=== PATIENT | female | born 1965 | race Hispanic/Latino ===

== ENCOUNTER 2017-10-26 08:12 | Inpatient (IN) | payer OTHER ==
[2017-10-26 08:45] LABS: Basophils % (Auto) 0.9 % (0.0-1.8); Hematocrit 41.1 % (30.3-42.9); Hemoglobin 14.1 gm/dl (10.1-14.3); Mean Corpuscular HGB Conc 34 % (30-34); Mean Corpuscular Hemoglobin 33 pg (28-32); Mean Corpuscular Volume 95 fl (79-97); Platelet Count 375 K/mm3 (140-440); Red Blood Count 4.33 M/mm3 (3.65-5.03); Red Cell Distribution Width 15.2 % (13.2-15.2); White Blood Count 8.3 K/mm3 (4.5-11.0)
--- NOTE | 2017-10-26 08:49 | XRay Report ---
ROUTINE CHEST, TWO VIEWS: HISTORY: Short of breath. The trachea, heart, mediastinal contour, lung weber and bony thorax are unremarkable. IMPRESSION: Unremarkable chest x-ray.
[2017-10-26 09:01] LABS: Anion Gap 19 mmol/L; BUN/Creatinine Ratio 20; Blood Urea Nitrogen 14 mg/dL (7-17); Calcium 9.1 mg/dL (8.4-10.2); Carbon Dioxide 27 mmol/L (22-30); Glucose 84 mg/dL (65-100); Potassium 4.8 mmol/L (3.6-5.0); Sodium 141 mmol/L (137-145)
[2017-10-26] MEDS ORDERED: ULTRAM PO ONE (13:53)
[2017-10-26] MEDS ORDERED: ASPIRIN PO ONE (13:53)
--- NOTE | 2017-10-26 13:56 | Emergency Department Report ---
ED Chest Pain HPI - General Chief Complaint: Chest Pain Stated Complaint: CP/SOB Time Seen by Provider: 10/26/17 12:51 Source: patient Mode of arrival: Ambulatory Limitations: No Limitations - History of Present Illness Initial Comments: Patient states that she has been having anterior chest pressure since last night. She states she has been sweating short of breath sometimes nauseated. Sometimes the pain is more burning and in the epigastric area. She does have a history of GERD. She states she's had some nonproductive cough. However the chest pain is not pleuritic. She denies any leg pain or swelling. MD Complaint: chest pain -: Gradual, hour(s) Onset: during rest Pain Location: substernal Pain Radiation: none Severity: moderate Quality: pressure Consistency: constant (still mildly present) Improves With: nothing Worsens With: nothing re: nausea (not currently), dyspnea. denies: diaphoresis (admit sweating this morning) Other Symptoms: cough Treatments Prior to Arrival: none Aspirin use within the Past 7 Days: (0) No - Related Data Allergies Allergy/AdvReac Type Severity Reaction Status Date / Time acetaminophen [From Percocet] Allergy Unknown Verified 10/26/17 08:18 oxycodone [From Percocet] Allergy Unknown Verified 10/26/17 08:18 Heart Score - HEART Score History: Moderately suspicious EKG: Non-specific Age: 45-65 Risk factors: > 3 risk factors or hx of atherosclerotic disease Troponin: < normal limit HEART Score: 5 ED Review of Systems ROS: Stated complaint: CP/SOB Other details as noted in HPI Constitutional: denies: chills, fever Eyes: denies: eye pain, eye discharge, vision change ENT: denies: ear pain, throat pain Respiratory: shortness of breath (not currently). denies: cough, wheezing Cardiovascular: chest pain. denies: palpitations Endocrine: no symptoms reported Gastrointestinal: nausea. denies: diarrhea Genitourinary: denies: urgency, dysuria, discharge Musculoskeletal: denies: back pain, joint swelling, arthralgia Skin: denies: rash, lesions Neurological: denies: headache, weakness, paresthesias Psychiatric: denies: anxiety, depression Hematological/Lymphatic: denies: easy bleeding, easy bruising ED Past Medical Hx - Past Medical History Previous Medical History?: Yes Hx GERD: Yes Hx of Cancer: Yes (vulvar) Hx COPD: Yes Additional medical history: IBS - Surgical History Past Surgical History?: Yes Hx Cholecystectomy: Yes Additional Surgical History: bilateral ankle surgery. sinus surgery. vulvar cancer removal. hysterectomy - Family History Family history: CAD/[place] (father of a heart attack also had cancer) - Social History Smoking Status: Current Every Day Smoker Substance Use Type: None ED Physical Exam - General Limitations: No Limitations General appearance: alert, in no apparent distress - Head Head exam: Present: atraumatic, normocephalic - Eye Eye exam: Present: normal appearance. Absent: scleral icterus - ENT ENT exam: Present: mucous membranes moist - Neck Neck exam: Present: normal inspection. Absent: tenderness, meningismus - Respiratory Respiratory exam: Present: normal lung sounds bilaterally. Absent: respiratory distress - Cardiovascular Cardiovascular Exam: Present: regular rate, normal rhythm. Absent: systolic murmur, diastolic murmur, rubs, gallop - GI/Abdominal GI/Abdominal exam: Present: soft, normal bowel sounds. Absent: distended, tenderness, guarding, rebound, rigid - Extremities Exam Extremities exam: Present: normal inspection, full ROM, normal capillary refill. Absent: tenderness, pedal edema, joint swelling, calf tenderness - Back Exam Back exam: Present: normal inspection, full ROM. Absent: CVA tenderness (R), CVA tenderness (L) - Neurological Exam Neurological exam: Present: alert, oriented X3, CN II-XII intact. Absent: motor sensory deficit - Psychiatric Psychiatric exam: Present: normal affect, normal mood - Skin Skin exam: Present: warm, dry, intact, normal color. Absent: rash ED Course Vital Signs 10/26/17 08:18 Temperature 97.6 F Pulse Rate 89 Respiratory 20 Rate Blood Pressure 128/70 O2 Sat by Pulse 96 Oximetry - Reevaluation(s) Reevaluation #1: Patient was reticent to be admitted but finally acquiesced. I did explain to her that she had substantial risk factors as well as a history consistent with acute coronary syndrome. Finally she was admitted to the hospital service for further evaluation in stable condition. 10/26/17 13:58 ORIANA score - Oriana Score Age > 65: (0) No Aspirin use within the Past 7 Days: (0) No 3 or more CAD Risk Factors: (1) Yes 2 or more Angina events in past 24 hrs: (0) No Known CAD with more than 50% Stenosis: (0) No Elevated Cardiac Markers: (0) No ST Deviation Greater than 0.5mm: (0) No ORIANA Score: 1 ED Medical Decision Making - Lab Data Result diagrams: 10/26/17 08:27 10/26/17 08:27 Laboratory Results - last 24 hr 10/26/17 10/26/17 10/26/17 08:27 08:27 11:31 WBC 8.3 RBC 4.33 Hgb 14.1 Hct 41.1 MCV 95 MCH 33 H MCHC 34 RDW 15.2 Plt Count 375 Lymph % (Auto) 29.6 [place] % (Auto) 7.0 Eos % (Auto) 1.0 Baso % (Auto) 0.9 Lymph # 2.5 [place] # 0.6 Eos # 0.1 Baso # 0.1 Seg Neutrophils % 61.5 Seg Neutrophils # 5.1 Sodium 141 Potassium 4.8 Chloride 100.0 Carbon Dioxide 27 Anion Gap 19 BUN 14 Creatinine 0.7 Estimated GFR > 60 BUN/Creatinine Ratio 20 Glucose 84 Calcium 9.1 Troponin T < 0.010 < 0.010 - EKG Data EKG shows normal: sinus rhythm, axis, intervals, QRS complexes Rate: normal - EKG Data Interpretation: nonspecific ST-T wave asha (somewhat diffuse) - Radiology Data interpreted by me: Chest x-ray no acute process Critical care attestation.: If time is entered above; I have spent that time in minutes in the direct care of this critically ill patient, excluding procedure time. ED Disposition Clinical Impression: Chest pain Qualifiers: Chest pain type: unspecified Qualified Code(s): R07.9 - Chest pain, unspecified Disposition: 09 OP ADMIT IP TO THIS HOSP Is pt being admited?: Yes Does the pt Need Aspirin: Yes Condition: Stable Instructions: Chest Pain (ED) Referrals: MICHAEL OLIVIER MD [Primary Care Provider] - 3-5 Days Time of Disposition: 14:01
[2017-10-26] MEDS ORDERED: MOTRIN PO PRN (14:11)
[2017-10-26] MEDS ORDERED: ZOFRAN IV PRN (14:11)
[2017-10-26] MEDS ORDERED: DULCOLAX PR PRN (14:11)
[2017-10-26] MEDS ORDERED: NARCAN 0.4 MG/1 ML IV PRN (14:11)
[2017-10-26] MEDS ORDERED: AMBIEN PO PRN (14:11)
[2017-10-26] MEDS ORDERED: PROVENTIL IH PRN (14:11)
[2017-10-26] MEDS ORDERED: NITROSTAT SL PRN (14:28)
[2017-10-26] MEDS ORDERED: VANCOMYCIN 2,000 MG in NACL 0.9% 500 ML 500 ML IV ONE (14:30)
[2017-10-26] MEDS ORDERED: LOVENOX SUB-Q SCH (15:00)
[2017-10-26] MEDS ORDERED: VANCOMYCIN PHARMACY TO DOSE IV SCH (15:00)
[2017-10-26] MEDS ORDERED: NACL 0.9% 1000 ML 1,000 ML IV SCH (15:00)
[2017-10-26] MEDS ORDERED: PROAIR IH PRN (15:28)
[2017-10-26] MEDS ORDERED: GUAIFENESIN 1200 MG PO SCH (15:30)
--- NOTE | 2017-10-26 16:29 | History and Physical Report ---
History of Present Illness Date of examination: 10/26/17 Date of admission: 10/26/17 14:01 Chief complaint: Chest Pain History of present illness: Patient states that she has been having anterior chest pressure since last night. She states she has been sweating short of breath sometimes nauseated. Sometimes the pain is more burning and in the epigastric area. She does have a history of GERD. She states she's had some nonproductive cough. However the chest pain is not pleuritic. She denies any leg pain or swelling. Past History Past Medical History: COPD, GERD, hypothyroidism (vulvar cancer removed), other (vulvar cancer) Past Surgical History: hysterectomy, Other (bilateral ankle repair, cyst removed from R arm) Social history: , smoking Medications and Allergies Allergies Allergy/AdvReac Type Severity Reaction Status Date / Time acetaminophen [From Percocet] Allergy Unknown Verified 10/26/17 08:18 oxycodone [From Percocet] Allergy Unknown Verified 10/26/17 08:18 Home Medications Medication Instructions Recorded Confirmed Last Taken Type ALBUTEROL Inhaler [Proair] 2 puff IH Q4-6H PRN 10/26/17 10/26/17 Unknown History Cholecalciferol (Vitamin D3) 2,000 unit PO QDAY 10/26/17 10/26/17 Unknown History [Vitamin D3 2,000 unit] Citalopram Hydrobromide [Celexa] 40 mg PO QDAY 10/26/17 10/26/17 Unknown History Fluticasone/Salmeterol [Advair 1 each IH BID 10/26/17 10/26/17 Unknown History 250-50 Diskus] Lactase [Lactaid] 9,000 unit PO QDAY 10/26/17 10/26/17 10/26/17 History Modafinil [Provigil] 200 mg PO QAM 10/26/17 10/26/17 Unknown History Montelukast [Singulair] 10 mg PO QPM 10/26/17 10/26/17 10/25/17 History Multivit/Folic Acid/Herbal 223 400 mcg PO QDAY 10/26/17 10/26/17 10/26/17 History [Estroven Mood & Memory Caplet] Naproxen Sodium [Aleve TAB] 220 mg PO Q8H PRN 10/26/17 10/26/1710/26/17 History Pantoprazole [Protonix] 40 mg PO QDAY 10/26/17 10/26/17 Unknown History Thyroid,Pork [[place] Thyroid] 30 mg PO QDAY 10/26/17 10/26/17 10/25/17 History guaiFENesin [Guaifenesin] 1,200 mg PO Q12H 10/26/17 10/26/17 10/26/17 History Active Meds: Active Medications Albuterol (Proventil) 2.5 mg IH Q3HRT PRN PRN Reason: Shortness Of Breath Albuterol/Ipratropium (Duoneb *Not For Prn Use*) 1 ampul IH Q6HRT [facility] Aspirin (Aspirin) 325 mg PO QDAY [facility] Bisacodyl (Dulcolax) 10 mg IN QDAY PRN PRN Reason: Constipation unrelieved by [facility] Cholecalciferol (Vitamin D3) 2,000 unit PO DAILY [facility] Citalopram Hydrobromide (Celexa) 40 mg PO DAILY [facility] Enoxaparin Sodium (Lovenox) 40 mg SUB-Q QDAY@1000 [facility] Guaifenesin (Mucinex Er) 1,200 mg PO BID [facility] Sodium Chloride (Nacl 0.9% 1000 Ml) 1,000 mls @ 100 mls/hr IV DIRECT [facility] Ibuprofen (Motrin) 600 mg PO Q6H PRN PRN Reason: Pain, Mild (1-3) Modafinil (Provigil) 200 mg PO QAM [facility] Montelukast Sodium (Singulair) 10 mg PO QPM [facility] Naloxone HCl (Narcan 0.4 Mg/1 Ml) 0.1 mg IV Q2MIN PRN PRN Reason: Res Rate </= 8 or 02 SAT < 92% Nitroglycerin (Nitrostat) 0.4 mg SL .Q5MIN PRN PRN Reason: Chest Pain Ondansetron HCl (Zofran) 4 mg IV Q8H PRN PRN Reason: N/V unrelieved by Reglan Pantoprazole Sodium (Protonix) 40 mg PO QDAY [facility] Thyroid (Thyroid) 30 mg PO QDAY@0600 [facility] Zolpidem Tartrate (Ambien) 5 mg PO QHS PRN PRN Reason: Insomnia Review of Systems Constitutional: no weight loss, no fever, no chills, no sweats Ears, nose, mouth and throat: no ear pain, no ear discharge, no tinnitis Breasts: normal Cardiovascular: chest pain, shortness of breath, no palpitations, no edema, no syncope Respiratory: cough, shortness of breath, dyspnea on exertion Gastrointestinal: nausea, no abdominal pain, no vomiting, no diarrhea, no constipation Genitourinary Female: no dyspareunia, no dysmenorrhea, no pelvic pain, no flank pain Menstruation: post hysterectomy Rectal: no pain, no incontinence, no bleeding Musculoskeletal: arm numbness/tingling, other (chronic back pain), no shooting arm pain, no shooting leg pain, no redness of joints Integumentary: no rash, no pruritis, no redness Neurological: no head injury, no paralysis, no syncope Psychiatric: no memory loss, no sleep disturbances, no change in appetite Endocrine: no cold intolerance, no heat intolerance, no polyphagia, no excessive thirst Hematologic/Lymphatic: no easy bruising, no easy bleeding Allergic/Immunologic: no urticaria, no wheezing Exam - Constitutional Vitals: Temp Pulse Resp BP Pulse Ox 97.6 F 89 20 128/70 97 10/26/17 08:18 10/26/17 08:18 10/26/17 15:55 10/26/17 08:18 10/26/17 15:55 General appearance: Present: no acute distress - EENT Eyes: Present: PERRL, EOM intact ENT: hearing intact, clear oral mucosa - Neck Neck: Present: supple, normal ROM - Respiratory Respiratory effort: normal Respiratory: bilateral: CTA - Cardiovascular Heart Sounds: Present: S1 & S2. Absent: rub, click - Extremities Extremities: pulses symmetrical, No edema - Abdominal General gastrointestinal: Present: soft, non-tender, non-distended Female genitourinary: Present: deferred - Rectal Rectal Exam: deferred - Integumentary Integumentary: Present: clear, warm, dry - Musculoskeletal Musculoskeletal: gait normal, strength equal bilaterally - Psychiatric Psychiatric: appropriate mood/affect, intact judgment & insight - Neurologic Neurologic: CNII-XII intact, moves all extremities - Allied Health Allied health notes reviewed: nursing Results - Labs CBC & Chem 7: 10/26/17 08:27 10/26/17 08:27 Labs: Laboratory Last Values WBC 8.3 K/mm3 (4.5-11.0) 10/26/17 08:27 RBC 4.33 M/mm3 (3.65-5.03) 10/26/17 08:27 Hgb 14.1 gm/dl (10.1-14.3) 10/26/17 08:27 Hct 41.1 % (30.3-42.9) 10/26/17 08:27 MCV 95 fl (79-97) 10/26/17 08:27 MCH 33 pg (28-32) H 10/26/17 08:27 MCHC 34 % (30-34) 10/26/17 08:27 RDW 15.2 % (13.2-15.2) 10/26/17 08:27 Plt Count 375 K/mm3 (140-440) 10/26/17 08:27 Lymph % (Auto) 29.6 % (13.4-35.0) 10/26/17 08:27 [place] % (Auto) 7.0 % (0.0-7.3) 10/26/17 08:27 Eos % (Auto) 1.0 % (0.0-4.3) 10/26/17 08:27 Baso % (Auto) 0.9 % (0.0-1.8) 10/26/17 08:27 Lymph # 2.5 K/mm3 (1.2-5.4) 10/26/17 08:27 [place] # 0.6 K/mm3 (0.0-0.8) 10/26/17 08:27 Eos # 0.1 K/mm3 (0.0-0.4) 10/26/17 08:27 Baso # 0.1 K/mm3 (0.0-0.1) 10/26/17 08:27 Seg Neutrophils % 61.5 % (40.0-70.0) 10/26/17 08:27 Seg Neutrophils # 5.1 K/mm3 (1.8-7.7) 10/26/17 08:27 Sodium 141 mmol/L (137-145) 10/26/17 08:27 Potassium 4.8 mmol/L (3.6-5.0) 10/26/17 08:27 Chloride 100.0 mmol/L (98-107) 10/26/17 08:27 Carbon Dioxide 27 mmol/L (22-30) 10/26/17 08:27 Anion Gap 19 mmol/L 10/26/17 08:27 BUN 14 mg/dL (7-17) 10/26/17 08:27 Creatinine 0.7 mg/dL (0.7-1.2) 10/26/17 08:27 Estimated GFR > 60 ml/min 10/26/17 08:27 BUN/Creatinine Ratio 20 % 10/26/17 08:27 Glucose 84 mg/dL (65-100) 10/26/17 08:27 Calcium 9.1 mg/dL (8.4-10.2) 10/26/17 08:27 Troponin T < 0.010 ng/mL (0.00-0.029) 10/26/17 15:30 - Imaging and Cardiology Chest x-ray: report reviewed (Unremarkable) Assessment and Plan Advance Directives: Yes VTE prophylaxis?: Chemical Plan of care discussed with patient/family: Yes - Patient Problems (1) COPD (chronic obstructive pulmonary disease) Current Visit: Yes Status: Chronic Plan to address problem: Duoneb, Albuterol PRN (2) Hypothyroidism Current Visit: Yes Status: Chronic Plan to address problem: Continue Home Meds (3) GERD (gastroesophageal reflux disease) Current Visit: Yes Status: Chronic Plan to address problem: Continue Home meds (4) Chest pain Current Visit: Yes Status: Acute Qualifiers: Chest pain type: unspecified Qualified Code(s): R07.9 - Chest pain, unspecified Plan to address problem: Stress Test, Consult Cardiology, Nitro PRN, Recheck cardiac enzymes
[2017-10-26] MEDS ORDERED: SINGULAIR PO SCH (18:00)
[2017-10-26 18:10] LABS: Creatine Kinase 53 units/L (30-135)
[2017-10-26] MEDS: LOVENOX SUB-Q SCH (18:17)
[2017-10-26] MEDS ORDERED: DUONEB *Not for PRN Use IH SCH (20:00)
[2017-10-26] MEDS: MUCINEX ER PO SCH (22:22)
[2017-10-27 01:15] LABS: Creatine Kinase 44 units/L (30-135)
[2017-10-27] MEDS ORDERED: VANCOMYCIN 1,500 MG in NACL 0.9% 500 ML 500 ML IV SCH (03:00)
[2017-10-27] MEDS ORDERED: THYROID PO SCH (06:00)
[2017-10-27] MEDS: DUONEB *Not for PRN Use IH SCH ×2 (07:51→14:23)
[2017-10-27 08:14] LABS: Creatine Kinase 44 units/L (30-135)
[2017-10-27 09:32] VITALS: BP 112/54
[2017-10-27] MEDS ORDERED: VITAMIN D3 PO SCH (10:00)
[2017-10-27] MEDS ORDERED: FOLIC ACID PO SCH (10:00)
[2017-10-27] MEDS ORDERED: HERBAL PO SCH (10:00)
[2017-10-27] MEDS ORDERED: PROTONIX PO SCH (10:00)
[2017-10-27] MEDS ORDERED: MULTIVIT PO SCH (10:00)
[2017-10-27] MEDS ORDERED: NON-FORMULARY (Citalopram Hydrobromide [Celexa] 40 MG) PO SCH (10:00)
[2017-10-27] MEDS ORDERED: celeXA PO SCH (10:00)
[2017-10-27] MEDS ORDERED: PROVIGIL PO SCH (10:00)
[2017-10-27] MEDS ORDERED: NON-FORMULARY (Cholecalciferol (Vitamin D3) [Vitamin D3 2,000 Unit] 2,000 UNIT) PO SCH (10:00)
[2017-10-27] MEDS ORDERED: THYROID PORK 30 MG PO SCH (10:00)
[2017-10-27] MEDS ORDERED: MODAFINIL 200 MG PO SCH (10:00)
[2017-10-27] MEDS ORDERED: ASPIRIN PO SCH (10:00)
--- NOTE | 2017-10-27 11:03 | Consultation ---
History of Present Illness Consult date: 10/27/17 Consult reason: chest pain History of present illness: Patient is presenting for the evaluation of chest pain, retrosternal, associated with bilateral arm tingling. ECG is showing SR, non-specific ST-T wave abnormalities. Troponin is negative. CXR is unremarkable. Patient is a current smoker and has a history of COPD. Past History Past Medical History: COPD, GERD, hypothyroidism (vulvar cancer removed), other (vulvar cancer) Past Surgical History: hysterectomy, Other (bilateral ankle repair, cyst removed from R arm) Social history: , smoking Medications and Allergies Allergies Allergy/AdvReac Type Severity Reaction Status Date / Time acetaminophen [From Percocet] Allergy Unknown Verified 10/26/17 08:18 oxycodone [From Percocet] Allergy Unknown Verified 10/26/17 08:18 Home Medications Medication Instructions Recorded Confirmed Last Taken Type ALBUTEROL Inhaler [Proair] 2 puff IH Q4-6H PRN 10/26/17 10/26/17 Unknown History Cholecalciferol (Vitamin D3) 2,000 unit PO QDAY 10/26/17 10/26/17 Unknown History [Vitamin D3 2,000 unit] Citalopram Hydrobromide [Celexa] 40 mg PO QDAY 10/26/17 10/26/17 Unknown History Fluticasone/Salmeterol [Advair 1 each IH BID 10/26/17 10/26/17 Unknown History 250-50 Diskus] Lactase [Lactaid] 9,000 unit PO QDAY 10/26/17 10/26/17 10/26/17 History Modafinil [Provigil] 200 mg PO QAM 10/26/17 10/26/17 Unknown History Montelukast [Singulair] 10 mg PO QPM 10/26/17 10/26/17 10/25/17 History Multivit/Folic Acid/Herbal 223 400 mcg PO QDAY 10/26/17 10/26/17 10/26/17 History [Estroven Mood & Memory Caplet] Naproxen Sodium [Aleve TAB] 220 mg PO Q8H PRN 10/26/17 10/26/17 10/26/17 History Pantoprazole [Protonix] 40 mg PO QDAY 10/26/17 10/26/17 Unknown History Thyroid,Pork [[place] Thyroid] 30 mg PO QDAY 10/26/17 10/26/17 10/25/17 History guaiFENesin [Guaifenesin] 1,200 mg PO Q12H 10/26/17 10/26/17 10/26/17 History Active Meds: Active Medications Albuterol (Proventil) 2.5 mg IH Q3HRT PRN PRN Reason: Shortness Of Breath Albuterol/Ipratropium (Duoneb *Not For Prn Use*) 1 ampul IH TIDRT [facility] Last Admin: 10/27/17 07:51 Dose: 1 ampul Aspirin (Aspirin) 325 mg PO QDAY [facility] Bisacodyl (Dulcolax) 10 mg RI QDAY PRN PRN Reason: Constipation unrelieved by [facility] Cholecalciferol (Vitamin D3) 2,000 unit PO DAILY [facility] Citalopram Hydrobromide (Celexa) 40 mg PO DAILY [facility] Enoxaparin Sodium (Lovenox) 40 mg SUB-Q QDAY@1000 [facility] Last Admin: 10/26/17 18:17 Dose: 40 mg Guaifenesin (Mucinex Er) 1,200 mg PO BID [facility] Last Admin: 10/26/17 22:22 Dose: 1,200 mg Sodium Chloride (Nacl 0.9% 1000 Ml) 1,000 mls @ 100 mls/hr IV DIRECT [facility] Last Admin: 10/26/17 22:24 Dose: 100 mls/hr Ibuprofen (Motrin) 600 mg PO Q6H PRN PRN Reason: Pain, Mild (1-3) Last Admin: 10/26/17 22:23 Dose: 600 mg Modafinil (Provigil) 200 mg PO QAM [facility] Montelukast Sodium (Singulair) 10 mg PO QPM [facility] Last Admin: 10/26/17 18:18 Dose: 10 mg Naloxone HCl (Narcan 0.4 Mg/1 Ml) 0.1 mg IV Q2MIN PRN PRN Reason: Res Rate </= 8 or 02 SAT < 92% Nitroglycerin (Nitrostat) 0.4 mg SL .Q5MIN PRN PRN Reason: Chest Pain Ondansetron HCl (Zofran) 4 mg IV Q8H PRN PRN Reason: N/V unrelieved by Reglan Pantoprazole Sodium (Protonix) 40 mg PO QDAY [facility] Thyroid (Thyroid) 30 mg PO QDAY@0600 [facility] Last Admin: 10/27/17 06:46 Dose: Not Given Zolpidem Tartrate (Ambien) 5 mg PO QHS PRN PRN Reason: Insomnia Review of Systems All systems: negative Physical Examination Vital Signs Temp Pulse Resp BP Pulse Ox 97.6 F 89 20 128/70 96 10/26/17 08:18 10/26/17 08:18 10/26/17 08:18 10/26/17 08:18 10/26/17 08:18 General appearance: no acute distress HEENT: Positive: PERRL Neck: Positive: neck supple Cardiac: Positive: Reg Rate and Rhythm Lungs: Positive: Normal Exam Abdomen: Positive: Soft Results 10/26/17 08:27 10/26/17 08:27 Assessment and Plan Chest Pain Normal Treadmill stress test Negative troponin Normal CXR COPD Tobacco use Hypothyroidism Anxiety disorder History of vulvar cancer Recommendations: No further cardiac work-up needed May go home cardiac mustafa
[2017-10-27] MEDS: MUCINEX ER PO SCH (13:25)
[2017-10-27] MEDS: LOVENOX SUB-Q SCH (13:27)
--- NOTE | 2017-10-27 14:32 | Discharge Summary ---
Providers - Providers Date of Admission: 10/26/17 14:01 Date of discharge: 10/27/17 Attending physician: TRICIA OBRIEN 10/26/17 14:25 Consult to Cardiology [CONS] Urgent Consulting Provider: NICHOLAS GREENBERG Reason For Exam: Chest Pain Primary care physician: MICHAEL OLIVIER Hospitalization Condition: Stable Hospital course: Patient is 52 yo presented with chest pain. Troponin was normal. She was admitted to rule out acute coronary syndrome. Stress test done next day was normal. D-dimer was also negative. She was then discharged home. Chest pain due to GERD Disposition: TO HOME OR SELFCARE - Discharge Diagnoses (1) Chest pain Status: Acute Qualifiers: Chest pain type: unspecified Qualified Code(s): R07.9 - Chest pain, unspecified (2) GERD (gastroesophageal reflux disease) Status: Chronic Qualifiers: Esophagitis presence: without esophagitis Qualified Code(s): K21.9 - Gastro -esophageal reflux disease without esophagitis (3) Hypothyroidism Status: Chronic (4) Obesity (BMI 30-39.9) Status: Chronic Core Measure Documentation - Palliative Care Palliative Care/ Comfort Measures: Not Applicable - Core Measures Any of the following diagnoses?: none Exam - Constitutional Vitals: Temp Pulse Resp BP Pulse Ox 98.2 F 65 20 112/54 94 10/27/17 12:25 10/27/17 12:25 10/27/17 12:25 10/27/17 12:25 10/27/17 12:25 General appearance: Present: no acute distress - EENT Eyes: Present: PERRL ENT: hearing intact - Neck Neck: Present: supple - Respiratory Respiratory effort: normal Respiratory: bilateral: CTA - Cardiovascular Rhythm: regular Heart Sounds: Present: S1 & S2 - Extremities Extremities: No edema - Abdominal General gastrointestinal: Present: soft, non-tender - Integumentary Integumentary: Present: clear - Musculoskeletal Musculoskeletal: strength equal bilaterally - Neurologic Neurologic: moves all extremities, other (AAOx 3) Plan Diet: low fat, low cholesterol, low salt Additional Instructions: 1.Follow up with PCP in 1 week. Follow up with: MICHAEL OLIVIER MD [Primary Care Provider] - 3-5 Days Prescriptions: Famotidine [Pepcid] 20 mg PO BID #60 tablet
--- NOTE | 2017-10-28 00:43 | Treadmill Report ---
ORDERING PHYSICIAN: . INDICATION FOR PROCEDURE: Chest pain. FINDINGS: The patient exercised for 6 minutes and 36 seconds on the Alejandro protocol. The patient achieved a target heart rate of 141 beats per minute, which is 85% of the maximum age predicted heart rate. The patient did have some non-limiting chest discomfort. There were no ischemic EKG changes recorded. The patient had a normal blood pressure response to exercise. IMPRESSION: 1. No evidence of ischemic EKG changes. 2. Appropriate blood pressure response to exercise. 3. Nonlimiting chest pain. JOB# [id number] MIRZA/JEAN MARIE
--- NOTE | 2017-10-31 15:36 | Query- Chest Pain ---
Harley Wharton____Charli Date:____10/31/17 Group Exercise Instructor/CDS:____Alayna / Meganrubina Phone#:____[phone] Exercise your independent professional judgment when responding to query. Questions asked do not imply a particular answer is desired or expected. We greatly appreciate your clarification on this issue. Clinical Documentation States: 52 year old female was admitted on 10/26/17 The cardiology consult note (Dr. Whitehead 10/27/17) states " Consult reason: chest pain Patient is presenting for the evaluation of chest pain, retrosternal, associated with bilateral arm tingling. Past Medical History: COPD, GERD, hypothyroidism (vulvar cancer removed), other (vulvar cancer) Assessment and Plan Chest Pain Normal Treadmill stress test Negative troponin Normal CXR " Please document the etiology of Chest Pain: [ ] Myocardial Infarction [ ] Pneumonia [ ] Mediastinitis [ ] Costochondritis [ ] Pulmonary Embolism [ ] Coronary Artery Disease [x ] GERD [ ] Other: [ ] Comment/Explanation: Present on Admission: [x ] Yes (Y) [ ] Clinically undeterminable (W) [ ] No(N) Please document response in your Progress Notes and/or Discharge Summary and indicate if the condition was present on admission. JAVAD
== END 2017-10-27 17:00 | disposition home or self-care (01) | DRG 392 ==
LOC: ED 08:12 → 4A 14:01
PROVIDERS: ADMIT Internal Medicine; ATTEND Internal Medicine
DX: K21.9 Gastro-esophageal reflux disease without esophagitis (principal); J44.9 Chronic obstructive pulmonary disease, unspecified; E03.9 Hypothyroidism, unspecified; K58.9 Irritable bowel syndrome, unspecified; F17.200 Nicotine dependence, unspecified, uncomplicated; F41.9 Anxiety disorder, unspecified; Z88.5 Allergy status to narcotic agent; Z85.9 Personal history of malignant neoplasm, unspecified; Z90.49 Acquired absence of other specified parts of digestive tract; Z90.710 Acquired absence of both cervix and uterus; Z82.49 Family history of ischemic heart disease and other diseases of the circulatory system; Z79.899 Other long term (current) drug therapy
CPT/HCPCS: 36415; 71020; 80048; 82550; 84484; 85025; 85379; 93005; 93010; 93017; 94640; 99285; J1650; J3370; J7030; J7040

== ENCOUNTER 2019-01-29 13:10 | Outpatient (CLI) | payer OTHER ==
--- NOTE | 2019-01-29 14:56 | Mammography Report ---
RIGHT DIGITAL DIAGNOSTIC MAMMOGRAM with CAD: 01/29/19 13:10:00 CLINICAL: 6 month followup of an asymmetry identified at [facility]. COMPARISON:06/29/18 and 07/13/08 [facility] mammograms. FINDINGS: The breast is mostly fatty a few residual fibroglandular densities. The previously described asymmetry in the upper outer quadrant is no longer identified. No mass, architectural distortion or suspicious calcifications. IMPRESSION: No mammographic evidence of malignancy. BI-RADS CATEGORY: 1 - - Negative RECOMMENDATION: Return to routine mammographic screening. ACR BI-RADS MAMMOGRAPHIC CODES: 0 = Needs additional imaging evaluation; 1 = Negative; 2 = Benign; 3 = Probably benign; 4 = Suspicious; 5 = Malignant; 6 = Known biopsy-proven malignancy COMMENT: 1. Dense breast tissue, i.e., adenosis, fibrocystic changes, etc., may obscure an underlying neoplasm. 2. Approximately 10% of cancers are not detected with mammography. 3. A negative mammography report should not delay biopsy if a clinically suspicious mass is present. COMMENT: Patient follow-up letters are generated by our [employer] application.
== END 2019-01-29 13:11 | disposition home or self-care (01) ==
LOC: MAMMO 13:10
PROVIDERS: ATTEND Obstetrics & Gynecology
DX: R92.8 Other abnormal and inconclusive findings on diagnostic imaging of breast (principal); J44.9 Chronic obstructive pulmonary disease, unspecified; E03.9 Hypothyroidism, unspecified; K21.9 Gastro-esophageal reflux disease without esophagitis; E66.9 Obesity, unspecified; Z90.49 Acquired absence of other specified parts of digestive tract; Z90.710 Acquired absence of both cervix and uterus